=== PATIENT | female | born 1970 | race Caucasian/White ===

== ENCOUNTER 2016-07-07 15:11 | Emergency (ER) | payer SELFPAY ==
[~2016-07-07] VITALS: Ht 167.6 cm; Wt 86.2 kg
[~2016-07-07 15:11] MED LIST: ATIVAN0.5 MG PO; CILOXAN 5 ML5 M1 OP; EFFEXOR75 MG PO; HYDROCODONE BIT1 T11 PO; LEVOFLOXACIN500 MG PO; PERCOCET 325 MG1 TA5 PO; PRILOSEC40 MG PO; VICODIN 500 MG-1 TAB PO; Zofran4 MG PO
[2016-07-07 15:43] VITALS: BP 116/80
[2016-07-07] MEDS ORDERED: AMOXICILLIN500 M2 PO (16:51)
[2016-07-07] MEDS ORDERED: TESSALON PERLE100 M1 PO (16:51)
[2016-07-07] MEDS ORDERED: PREDNISONE20 M1 PO (16:51)
== END 2016-07-07 16:57 | disposition home or self-care (01) ==
LOC: ED 15:11
DX: J20.9 Acute bronchitis, unspecified (principal); F17.200 Nicotine dependence, unspecified, uncomplicated; Z79.899 Other long term (current) drug therapy

== ENCOUNTER 2017-05-22 00:12 | Emergency (ER) | payer OTHER ==
[~2017-05-22] VITALS: Ht 167.6 cm; Wt 84.4 kg
[~2017-05-22 00:12] MED LIST changes: +AMOXICILLIN500 M2 PO; +PREDNISONE20 M1 PO; +TESSALON PERLE100 M1 PO
[2017-05-22 00:30] VITALS: BP 117/70
[2017-05-22] MEDS ORDERED: ZYRTEC10 MG PO (00:31)
[2017-05-22] MEDS ORDERED: ZOCOR40 MG PO (00:32)
[2017-05-22] MEDS ORDERED: FLONASE ALLERG9.9 ML NAS (00:56)
== END 2017-05-22 01:12 | disposition home or self-care (01) ==
LOC: ED 00:12
DX: J11.1 Influenza due to unidentified influenza virus with other respiratory manifestations (principal); F17.200 Nicotine dependence, unspecified, uncomplicated; Z79.899 Other long term (current) drug therapy; Z98.51 Tubal ligation status

== ENCOUNTER → 2021-11-08 | Outpatient (CLI) | payer SELFPAY ==
[~2021-11-08] MED LIST changes: +FLONASE ALLERG9.9 ML NAS; +ZOCOR40 MG PO; +ZYRTEC10 MG PO
[2021-11-08 12:46] LABS: BILIRUBIN Negative (Negative); BLOOD Negative (Negative); CLARITY Clear (Clear); COLOR Yellow (Yellow); GLUCOSE Negative (Negative); KETONE Negative (Negative); LEUKO ESTERASE Negative (Negative); NITRITE Negative (Negative); PH 6.5 (4.5-8.0); SPECIFIC GRAVITY <= 1.005 (1.001-1.030); UROBILINOGEN 0.2 E.U./dl (0.0-1.0)
[2021-11-08 13:01] LABS: BASO % 0.4 % (0.0-1.0); EOS # 0.1 10*3/uL (0.0-0.4); EOS % 1.4 % (1.0-4.0); HEMATOCRIT 49.5 % (37.0-47.0); LYMPH # 2.5 10*3/uL (1.3-4.4); LYMPH % 32.8 % (27.0-41.0); MEAN CELL VOLUME 94.3 fl (81.0-99.0); MEAN CORPUSCULAR HGB 31.4 pg (27.0-31.0); MEAN CORPUSCULAR HGB CONC 33.3 g/dl (33.0-37.0); MEAN PLATELET VOLUME 9.9 fl (9.6-12.3); MONO # 0.3 10*3/uL (0.1-1.0); MONO % 4.4 % (3.0-9.0); NEUT # 4.7 10*3/uL (2.3-7.9); NEUT % 60.6 % (47.0-73.0); PLATELET COUNT AUTOMATED 271 10*3/uL (130-400); RED BLOOD COUNT 5.25 10*6/uL (4.10-5.10); RED CELL DISTRI WIDTH 13.2 % (0-14.5); WHITE BLOOD COUNT 7.7 10*3/uL (4.8-10.8)
[2021-11-08 13:23] LABS: BUN 11 mg/dl (7-24); CHLORIDE 106 mmol/L (98-107); CHOLESTEROL 301 mg/dL (<200); CREATININE 0.91 mg/dL (0.55-1.02); IRON 163 ug/dL (50-170); POTASSIUM 4.2 mmol/L (3.5-5.1); SGOT/AST 13 IU/L (3-35); SGPT/ALT 25 U/L (12-78); SODIUM 138 mmol/L (136-145)
[2021-11-08 13:26] LABS: BACTERIA TRACE
[2021-11-08 13:27] LABS: ALKALINE PHOSPHATASE 106 U/L (45-117); LDL CHOLESTEROL 197 mg/dL (9-159); TOTAL PROTEIN 7.2 gm/dL (6.4-8.2); TRIGLYCERIDES 318 mg/dl (<150)
== END | disposition short-term general hospital (02) ==
LOC: LAB 12:12
PROVIDERS: ATTEND Family Medicine
DX: E78.5 Hyperlipidemia, unspecified (principal); R79.89 Other specified abnormal findings of blood chemistry; R53.83 Other fatigue

== ENCOUNTER 2022-07-31 23:48 | Emergency (ER) | payer SELFPAY ==
[~2022-07-31] VITALS: Ht 167.6 cm; Wt 86.2 kg
[2022-08-01] VITALS: BP 134/84
[2022-08-01] MEDS ORDERED: NAPROXEN250 MG PO (00:13)
== END 2022-08-01 00:18 | disposition home or self-care (01) ==
LOC: ED 23:48
DX: S93.402A Sprain of unspecified ligament of left ankle, initial encounter (principal); Z98.51 Tubal ligation status; Z90.89 Acquired absence of other organs; Z79.899 Other long term (current) drug therapy; W18.39XA Other fall on same level, initial encounter; Y93.89 Activity, other specified; Y92.89 Other specified places as the place of occurrence of the external cause; Y99.8 Other external cause status

== ENCOUNTER → 2023-10-18 | Outpatient (CLI) | payer SELFPAY ==
[~2023-10-18] MED LIST changes: +NAPROXEN250 MG PO
== END | disposition home or self-care (01) ==
LOC: RAD 11:15
PROVIDERS: ATTEND Family Medicine
DX: M25.521 Pain in right elbow (principal)

== ENCOUNTER 2023-11-28 22:12 | Emergency (ER) | payer SELFPAY ==
[~2023-11-28] VITALS: Ht 167.6 cm; Wt 81.2 kg
[2023-11-28 22:30] VITALS: BP 125/72
[2023-11-28] MEDS ORDERED: Ketorolac Tromethamine 60 MG/2 ML VIAL IM ONE (22:55)
[2023-11-28] MEDS ORDERED: PREDNISONE20 M1 PO (23:20)
== END 2023-11-28 23:30 | disposition home or self-care (01) ==
LOC: ED 22:12
DX: M77.11 Lateral epicondylitis, right elbow (principal); Z79.899 Other long term (current) drug therapy; Z98.51 Tubal ligation status